=== PATIENT | female | born 1975 | race Two or more races ===

== ENCOUNTER 2023-04-06 09:57 | Outpatient (CLI) | payer OTHER | END 2023-04-06 10:08 | disposition home or self-care (01) | LOC: SONOGRAMA 09:57 | DX: N64.89 Other specified disorders of breast (principal); Z12.31 Encounter for screening mammogram for malignant neoplasm of breast ==

== ENCOUNTER 2023-09-05 08:24 | Outpatient (CLI) | payer OTHER ==
[2023-09-05 09:18] LABS: URINE APPEARANCE Clear; URINE BILIRRUBIN Negative (NEGATIVE); URINE BLOOD Trace; URINE COLOR Yellow; URINE GLUCOSE Negative (NEGATIVE); URINE LEUKOCYTE Negative; URINE NITRATE Negative; URINE PROTEIN Trace (NEGATIVE); URINE UROBILINOGEN 0.2 E.U./dl
[2023-09-05 09:19] LABS: URINE BACTERIA 1456.4 uL (0.0-1933); URINE EPITHELIAL CELLS 39.5 uL (0.0-38.8); URINE RBC 15.8 uL (0.0-20.8); URINE WBC 17.7 uL (0.0-23.2)
[2023-09-05 09:25] LABS: HEMATOCRIT 37.8 % (36.0-45.00); HEMOGLOBIN 12.6 g/dL (12.0-15.00); MEAN CELL VOLUME 84.5 fL (80.00-100.00); MEAN CORPUSCULAR HEMOGLOBIN 28.2 pg (27.00-32.0); MEAN CORPUSCULAR HGB CONC 33.4 g/dl (32.0-36.0); PLATELET COUNT 332 K/uL (150-450); RED BLOOD COUNT 4.47 M/uL (4.00-6.00)
[2023-09-05 10:00] LABS: INR 0.98; PARTIAL THROMBOPLASTIN TIME 26.9 SECONDS (22.0-34.0); PROTHROMBIN TIME 10.3 SECONDS (9.0-11.5)
[2023-09-05 10:27] LABS: ALBUMIN 3.7 gm/dL (3.4-5.0); BILIRUBIN TOTAL 0.35 mg/dL (0.3-1.2); CALCIUM 9.5 mg/dL (8.5-10.1); CHOL HDL RATIO 3.4 (0-5.0); CREATININE SERUM 0.81 mg/dL (0.55-1.02); GFR 75.15; GLOBULINA 3.9 G/DL (2.4-3.5); POTASSIUM 3.99 mEq/L (3.5-5.1); T4 FREE 0.92 NG/ML (0.76-1.46); TOTAL PROTEIN 7.6 gm/dL (6.4-8.2); TSH 1.59 uIU/mL (0.358-3.74)
[2023-09-06 05:06] LABS: ESTRADIOL SERUM 39.3 pg/mL (.); HEPATITIS C VIRUS ANTIBODY Non Reactive (Non Reactive)
[2023-09-06 09:08] LABS: FOLLICLE STIMULATING HORMONE 7.5 mIU/mL (.)
== END 2023-09-05 08:32 | disposition home or self-care (01) ==
LOC: LAB 08:24
PROVIDERS: ATTEND Obstetrics & Gynecology Gynecology
DX: E03.8 Other specified hypothyroidism (principal); D63.8 Anemia in other chronic diseases classified elsewhere; N30.90 Cystitis, unspecified without hematuria; E78.00 Pure hypercholesterolemia, unspecified; R73.9 Hyperglycemia, unspecified; K92.1 Melena; Z12.11 Encounter for screening for malignant neoplasm of colon; E55.9 Vitamin D deficiency, unspecified; N76.0 Acute vaginitis; N92.1 Excessive and frequent menstruation with irregular cycle; E03.9 Hypothyroidism, unspecified; N93.8 Other specified abnormal uterine and vaginal bleeding

== ENCOUNTER 2023-11-16 14:32 | Outpatient (CLI) | payer OTHER | END 2023-11-16 14:39 | disposition home or self-care (01) | LOC: MAMO-SONO 14:32 | PROVIDERS: ATTEND Surgery | DX: N60.11 Diffuse cystic mastopathy of right breast (principal); N60.12 Diffuse cystic mastopathy of left breast ==

== ENCOUNTER 2024-09-30 07:32 | Outpatient (CLI) | payer OTHER ==
[2024-09-30 07:59] LABS: BASO % 0.5 % (0.1-1.2); EOS # 0.21 (0.04-0.54); EOS % 2.9 % (0.7-7.0); LYMPH # 2.62 (1.18-3.74); LYMPH % 35.6 % (19.3-53.1); MEAN PLATELET VOLUME 9.70 fl (9.4-12.4); MONO # 0.57 (0.24-0.82); MONO % 7.7 % (4.7-12.5); NEUT # 3.91 (1.56-6.13); NEUT % 53.2 % (34.0-71.1); RED CELL DISTRIBUTION WIDTH 14.2 % (11.6-14.4)
[2024-09-30 08:54] LABS: ALT/SGPT 17.0 U/L (12-78); AST/SGOT 16.0 U/L (15-37); BILIRUBIN TOTAL 0.45 mg/dL (0.3-1.2); BUN CREA RATIO 10.0 (7.0-25.0); CREATININE SERUM 0.84 mg/dL (0.55-1.02); GFR 71.77; GLOBULINA 3.8 G/DL (2.4-3.5); GLUCOSE FASTING 97.0 mg/dL (65-100); OSMOLALITY SERUM 281.0 MOSM/KG (275-295)
== END 2024-09-30 07:36 | disposition home or self-care (01) ==
LOC: LAB 07:32
PROVIDERS: ATTEND Internal Medicine Gastroenterology
DX: K30 Functional dyspepsia (principal); R10.13 Epigastric pain; Z86.0101 Personal history of adenomatous and serrated colon polyps; K57.30 Diverticulosis of large intestine without perforation or abscess without bleeding

== ENCOUNTER 2024-09-30 08:00 | Outpatient (CLI) | payer OTHER | END 2024-09-30 08:06 | disposition home or self-care (01) | LOC: SONOGRAMA 08:00 | PROVIDERS: ATTEND Internal Medicine Gastroenterology | DX: R10.13 Epigastric pain (principal) ==

== ENCOUNTER 2024-11-22 07:45 | Outpatient (CLI) | payer OTHER ==
[2024-11-22 09:33] LABS: URINE APPEARANCE Clear; URINE BILIRRUBIN Negative (NEGATIVE); URINE BLOOD Negative; URINE COLOR Yellow; URINE GLUCOSE Negative (NEGATIVE); URINE KETONE Trace (NEGATIVE); URINE LEUKOCYTE Trace; URINE NITRATE Negative; URINE PROTEIN 30 (NEGATIVE); URINE UROBILINOGEN 1.0 E.U./dl
[2024-11-22 09:34] LABS: URINE BACTERIA 1305.5 uL (0.0-1933); URINE EPITHELIAL CELLS 45.3 uL (0.0-38.8); URINE RBC 26.9 uL (0.0-20.8); URINE WBC 17.6 uL (0.0-23.2)
[2024-11-22 09:41] LABS: BASO % 0.5 % (0.1-1.2); EOS # 0.12 (0.04-0.54); EOS % 2.1 % (0.7-7.0); LYMPH # 1.97 (1.18-3.74); LYMPH % 34.8 % (19.3-53.1); MEAN PLATELET VOLUME 10.40 fl (9.4-12.4); MONO # 0.57 (0.24-0.82); MONO % 10.1 % (4.7-12.5); NEUT # 2.96 (1.56-6.13); NEUT % 52.3 % (34.0-71.1); RED CELL DISTRIBUTION WIDTH 14.1 % (11.6-14.4)
[2024-11-22 09:41] LABS: URINE CAST 0.00 uL (0.0-1.40)
[2024-11-22 10:26] LABS: ALT/SGPT 20 U/L (12-78); AST/SGOT 21 U/L (15-37); BILIRUBIN TOTAL 0.50 mg/dL (0.3-1.2); BUN CREA RATIO 10 (7.0-25.0); CHOL HDL RATIO 2.8 (0-5.0); CREATININE SERUM 0.68 mg/dL (0.55-1.02); GFR 91.59; GLOBULINA 3.7 G/DL (2.4-3.5); GLUCOSE FASTING 96 mg/dL (65-100); HDL 54 mg/dl (40-60); LDL 82 mg/dl (0-130); OSMOLALITY SERUM 277 MOSM/KG (275-295); TSH 0.994 uIU/mL (0.358-3.74); VLDL 15 (0-39)
== END 2024-11-22 07:46 | disposition home or self-care (01) ==
LOC: LAB 07:45
DX: D64.9 Anemia, unspecified (principal); N39.0 Urinary tract infection, site not specified; R10.9 Unspecified abdominal pain; E03.9 Hypothyroidism, unspecified; E78.5 Hyperlipidemia, unspecified; R07.9 Chest pain, unspecified; R80.9 Proteinuria, unspecified; E11.9 Type 2 diabetes mellitus without complications

== ENCOUNTER 2024-12-27 07:25 | Outpatient (CLI) | payer OTHER ==
[2024-12-27 09:14] LABS: BASO % 0.4 % (0.1-1.2); EOS # 0.20 (0.04-0.54); EOS % 2.8 % (0.7-7.0); LYMPH # 2.35 (1.18-3.74); LYMPH % 32.8 % (19.3-53.1); MEAN PLATELET VOLUME 10.10 fl (9.4-12.4); MONO # 0.73 (0.24-0.82); MONO % 10.2 % (4.7-12.5); NEUT # 3.84 (1.56-6.13); NEUT % 53.5 % (34.0-71.1); RED CELL DISTRIBUTION WIDTH 14.6 % (11.6-14.4)
[2024-12-27 09:39] LABS: URINE APPEARANCE Clear; URINE BILIRRUBIN Negative (NEGATIVE); URINE BLOOD Negative; URINE COLOR Yellow; URINE GLUCOSE Negative (NEGATIVE); URINE KETONE Negative (NEGATIVE); URINE LEUKOCYTE Negative; URINE NITRATE Negative; URINE PROTEIN Trace (NEGATIVE); URINE UROBILINOGEN 0.2 E.U./dl
[2024-12-27 09:42] LABS: URINE BACTERIA 573.6 uL (0.0-1933); URINE EPITHELIAL CELLS 20.7 uL (0.0-38.8); URINE RBC 5.1 uL (0.0-20.8); URINE WBC 9.9 uL (0.0-23.2)
[2024-12-27 09:52] LABS: ALT/SGPT 17.0 U/L (12-78); AST/SGOT 16.0 U/L (15-37); BILIRUBIN TOTAL 0.25 mg/dL (0.3-1.2); BUN CREA RATIO 14.0 (7.0-25.0); CHOL HDL RATIO 3.0 (0-5.0); CREATININE SERUM 0.78 mg/dL (0.55-1.02); GFR 78.17; GLOBULINA 3.3 G/DL (2.4-3.5); GLUCOSE FASTING 96.0 mg/dL (65-100); HDL 53.0 mg/dl (40-60); LDL 88.0 mg/dl (0-130); OSMOLALITY SERUM 279.0 MOSM/KG (275-295); TSH 1.98 uIU/mL (0.358-3.74); VLDL 20.0 (0-39)
[2024-12-27 09:59] LABS: URINE CAST 0.14 uL (0.0-1.40)
== END 2024-12-27 07:29 | disposition home or self-care (01) ==
LOC: LAB 07:25
PROVIDERS: ATTEND Internal Medicine Cardiovascular Disease
DX: D64.9 Anemia, unspecified (principal); N39.0 Urinary tract infection, site not specified; R10.9 Unspecified abdominal pain; E03.9 Hypothyroidism, unspecified; E78.5 Hyperlipidemia, unspecified; E55.9 Vitamin D deficiency, unspecified; R80.9 Proteinuria, unspecified; E11.9 Type 2 diabetes mellitus without complications; E83.42 Hypomagnesemia

== ENCOUNTER 2025-01-26 06:48 | Outpatient (CLI) | payer OTHER ==
[2025-01-26 08:27] LABS: URINE PROT QUANT 24HR 18.6 MG/DL
[2025-01-26 08:44] LABS: URINE PROT QUANT 24 HR 93.0 MG/24HR (42-225)
[2025-01-26 09:26] LABS: CREATINE CLEARANCE 128.8 ML/MIN (97-137); CREATININE SERUM 0.77 mg/dL (0.6-1.0)
== END 2025-01-26 06:53 | disposition home or self-care (01) ==
LOC: LAB 06:48
PROVIDERS: ATTEND Internal Medicine Cardiovascular Disease
DX: R80.0 Isolated proteinuria (principal); I10 Essential (primary) hypertension